=== PATIENT | male | born 1985 | race Two or more races ===

== ENCOUNTER 2023-08-12 16:02 | Emergency (ER) | payer OTHER ==
[~2023-08-12] VITALS: Ht 180.3 cm; Wt 100.0 kg
[2023-08-12 16:18] VITALS: BP 129/70; PULSE 80; RESP 18; O2SAT 98
[2023-08-12] MEDS ORDERED: KETOROLAC TROMETH 60MG/2ML VIAL IM ONE (16:30)
[2023-08-12] MEDS ORDERED: ACET500T58 PO (17:04)
[2023-08-12] MEDS ORDERED: IBUP-1455 PO (17:04)
== END 2023-08-13 02:25 | disposition left against medical advice (07) ==
LOC: ER 16:02
DX: S16.1XXA Strain of muscle, fascia and tendon at neck level, initial encounter (principal); S39.012A Strain of muscle, fascia and tendon of lower back, initial encounter; S40.011A Contusion of right shoulder, initial encounter; V43.52XA Car driver injured in collision with other type car in traffic accident, initial encounter; Y93.89 Activity, other specified; Y92.410 Unspecified street and highway as the place of occurrence of the external cause; Y99.8 Other external cause status
CPT/HCPCS: 72040; 72100; 73030